=== PATIENT | female | born 2000 | race Caucasian/White ===

== ENCOUNTER 2020-09-02 09:58 | Emergency (ER) | payer SELFPAY ==
[2020-09-02 10:00] VITALS: BP 118/72; PULSE 74; RESP 16; TEMP 36.8; O2SAT 100; BMI 32.8
[2020-09-02 10:05] VITALS: O2SAT 100
--- NOTE | 2020-09-02 10:21 | ED_ITS ---
HPI - COVID General: Chief Complaint: COVID symptoms Stated Complaint: Work sent for covid test, fatigue/loss of taste Time Seen by Provider: 09/02/20 10:05 Triage information: No fever, cough or shortness of breath . No known COVID + exposure last 14 days History of Present Illness: HPI Narrative: Sent from work for Covid testing. Patient says she lost taste and smell. Just feels yucky. No shortness of breath or fever. Slight muscle aches. MD complaint: has COVID symptoms Prior covid testing: no COVID 19 common symptoms: positive fatigue, body aches and loss of sense of smell and/or taste; negative non-productive cough, productive cough, dyspnea, headache(s), throat pain, nasal congestion, nausea or vomiting COVID 19 other sytmptoms: negative chest pain Onset (ago): day(s) Severity: mild Treatment prior to arrival: none COVID Results: SARS-CoV-2 RNA (RT-PCR) Pending 09/02/20 10:06 09/02/20 Review of Systems Const: Reports: body aches and fatigue Eyes: Denies: change in vision or blurry vision ENMT: Denies: throat pain or nasal congestion Card: Denies: chest pain or dyspnea on exertion Resp: Denies: dyspnea, productive cough or non-productive cough GI: Denies: abdominal pain, nausea or vomiting Musc: Denies: extremity pain Skin/Breast: Denies: rash Neuro: Denies: headache(s) Psych: Denies: anxiety or depression Timothy/Lymph: Denies: easy bruising Physical Exam Const: COMMON NORMALS: no acute distress, average body habitus and patient oriented x3 HENMT: COMMON NORMALS: normocephalic HEAD & SCALP: normal to inspection and normocephalic FACE & SINUS: normal facial exam Eye: COMMON NORMALS: conjunctivae normal GENERAL EYE: appearance normal, both eyes and all related structures CONJUNCTIVA: Yes conjunctivae normal Neck/C-Spine: COMMON NORMALS: no JVD Chest: COMMONS NORMALS: normal inspection of the chest Resp: COMMON NORMALS: normal respiratory effort Cardio: COMMON NORMALS: no JVD GI: INSPECTION: Yes normal to inspection Extremity: COMMON NORMALS: normal to inspection and full ROM Neuro: COMMON NORMALS: patient oriented x3 Course Vital Signs: Vital signs: Vital Signs Temperature 98.3 F 09/02/20 10:00 Pulse Rate 74 09/02/20 10:00 Respiratory Rate 16 09/02/20 10:00 Blood Pressure 118/72 09/02/20 10:00 Pulse Oximetry 100 09/02/20 10:05 MDM - COVID Lab Data COVID Results: SARS-CoV-2 RNA (RT-PCR) Pending 09/02/20 10:06 09/02/20 Discharge Plan Discharge Patient Disposition: Home Clinical Impression: Viral infection Condition: Stable Discharge Orders: Discharge Order (Routine); Ordered 09/02/20 Ordered By: Josemanuel Childress Referrals: Alejandra Miller DO [Primary Care Provider] - Discharge Diet: Usual diet Discharge Activity: Increase activity as tolerated Patient Instructions: Viral Syndrome (ED) Activity Restrictions/Additional Instructions: Self quarantine until results are back Tylenol ibuprofen for discomfort drink plenty of fluids. Discharge Date/Time: 09/02/20 10:26 Coding Level of Care Code ED Professor Of Historical Theology for Arielle Fwd Exam Comprehensive
[2020-09-04 11:28] LABS: Quest SARS-CoV-2 RNA NOT DETECTED (NOT DETECTED)
== END 2020-09-02 10:26 | disposition home or self-care (01) ==
PROVIDERS: Emergency Provider Nurse Practitioner Family; PCP Family Medicine
DX: B34.9 Viral infection, unspecified (principal)
CPT/HCPCS: 12345; 87635; 99282

== ENCOUNTER → 2023-05-11 16:01 | Outpatient (BNVA) | payer OTHER, SELFPAY | PROVIDERS: PCP Family Medicine; Visit Provider Emergency Medicine | DX: M79.642 Pain in left hand (principal) | CPT/HCPCS: 73130 ==